=== PATIENT | female | born 2000 | race Caucasian/White ===

== ENCOUNTER 2021-01-17 05:16 | Emergency (ER) | payer SELFPAY ==
[~2021-01-17] VITALS: Ht 149.9 cm; Wt 72.6 kg
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
--- NOTE | 2021-01-17 06:15 | NUR ---
DR. BARNARD AT BEDSIDE.
--- NOTE | 2021-01-17 06:30 | NUR ---
urine sent to lab
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
--- NOTE | 2021-01-17 06:33 | NUR ---
Patient discharged to home in stable condition. Written and verbal after care instructions given. Patient verbalizes understanding of instruction. Pt ambulatory with a steady gait
--- NOTE | 2021-01-17 06:41 | NUR ---
Dunia russell in [facility] - 01/17/21 at 0650 by PHYLLIS Pt awaiting ride home
[2021-01-17 06:54] VITALS: BP 120/75
[2021-01-17 07:05] LABS: COLOR,URINE YELLOW (YELLOW); LEUKOCYTE ESTERASE ,URINE NEGATIVE (NEGATIVE); NITRITE, URINE NEGATIVE (NEGATIVE); UGLUCOSE NEGATIVE (NEGATIVE)
[2021-01-17 07:19] LABS: BACTERIA,URINE Rare /HPF (None Seen); RBC,URINE NONE SEEN /HPF (0-2); SQUAMOUS EPITHELIAL CELL,UR Rare /HPF (None Seen); WBC,URINE NONE SEEN /HPF (0-3)
[2021-01-17 07:49] LABS: BILIRUBIN,URINE SMALL (NEGATIVE); PROTEIN,URINE 30 mg/dl (NEGATIVE); UROBILINOGEN,URINE 0.2 EU/dL (0.2)
[2021-01-17 07:52] LABS: URINE AMORPHOUS URATE None Seen /HPF (None Seen)
== END 2021-01-17 06:33 | disposition home or self-care (01) ==
LOC: ER 05:18
DX: T76.21XA Adult sexual abuse, suspected, initial encounter (principal); I10 Essential (primary) hypertension; F32.9 Major depressive disorder, single episode, unspecified; Z88.8 Allergy status to other drugs, medicaments and biological substances
CPT/HCPCS: 81001; 84703-TC; 87491; 87591